=== PATIENT | female | born 1965 | race Asian ===

== ENCOUNTER 2021-06-03 09:48 | Observation (INO) ==
[2021-06-03] MEDS ORDERED: ONDANSETRON INJ 2 MG/ML 2 ML VIAL IV STA (10:21)
[2021-06-03] MEDS ORDERED: MoRPHine SULFATE 2 MG/ML CARP IV STA ×2 (10:22→14:25)
--- NOTE | 2021-06-03 10:28 | Emergency Department Note ---
History of Present Illness General Chief complaint: Wrist Pain Stated complaint: BROKE R WRIST Time Seen by Provider: 06/03/21 10:13 History of Present Illness Maximum Pain Intensity: 9 This 55-year-old female, with known diabetes, hypertension, and elevated cholesterol, presents today for evaluation of her right wrist. Patient states she walked out of the house this morning and tripped on a curb or stone. She fell forward, landing on her right side. She had immediate onset of pain in her right wrist. There was an obvious deformity. She denies any numbness or tingling. She denies striking her head. There was no dizziness, chest pain, shortness of breath, or syncope. She has had no further treatment. No prior history of significant wrist injury. Patient recently moved here from [place] 3 weeks ago. She states her remains in [place]. She is here today with her boss. Home Medications Medication Instructions Recorded Confirmed Type aspirin 81 mg tablet,delayed 81 mg PO HS 06/03/21 06/03/21 History release (Aspirin Low Dose) atorvastatin 20 mg tablet (Lipitor) 20 mg PO HS 06/03/21 06/03/21 History dulaglutide 0.75 mg/0.5 mL 0.75 mg SUBCUT WK 06/03/21 06/03/21 History subcutaneous pen injector (Trulicity) empagliflozin 25 mg tablet 25 mg PO QAM 06/03/21 06/03/21 History (Jardiance) ergocalciferol (vitamin D2) 1,250 50,000 unit PO WK 06/03/21 06/03/21 History mcg (50,000 unit) capsule (Vitamin D2) glimepiride 1 mg tablet (Amaryl) 1 mg PO QDB 06/03/21 06/03/21 History lisinopril 2.5 mg tablet (Zestril) 2.5 mg PO HS 06/03/21 06/03/21 History pioglitazone 30 mg tablet (Actos) 30 mg PO QAM 06/03/21 06/03/21 History Allergies Allergy/AdvReac Type Severity Reaction Status Date / Time No Known Allergies Allergy Unverified 06/03/21 12:55 Past Med/Surg History Medical History (Updated 06/03/21 @ 18:34 by Manny Lopez PA-C) Diabetes Elevated cholesterol Hypertension Surgical History (Updated 06/03/21 @ 18:23 by Manny Lopez PA-C) No pertinent past surgical history Family History (Updated 06/03/21 @ 18:23 by Manny Lopez PA-C) Other Diabetes Social History (Updated 06/03/21 @ 18:24 by Manny Lopez PA-C) Smoking Status: Never smoker Hx Substance Use: No Preferred Language: Beninese marital status: Current Living Situation: Other Current Living Situation Comment: lives with her employer current occupational status: employed current occupation: nail salon Feels Safe at Home: Yes Review of Systems A total of 10 systems reviewed and were otherwise negative Physical Exam Vital Signs Vital Signs - 24 hr 06/03/21 10:03 06/03/21 12:02 06/03/21 14:22 Temperature 36.8 C Temperature Source Temporal Artery Scan Pulse Rate 68 Pulse Rate [Finger] 60 58 L Pulse Rhythm [Finger] Regular Regular Pulse Strength [Finger] Normal Respiratory Rate 16 16 18 Respiratory Effort / Characteristics Non-Labored Spontaneous Non-Labored Spontaneous Respiratory Depth Normal Normal Respiratory Pattern Regular Regular Blood Pressure 123/81 Blood Pressure [Left Arm] 156/94 H 117/71 Blood Pressure Mean 95 Blood Pressure Mean [Left Arm] 114 86 Blood Pressure Position Sitting Blood Pressure Position [Left Arm] Sitting Pulse Oximetry 98 95 98 Oxygen Delivery Method Room Air Room Air Sepsis Recent Fever Within 48 Hours No Sepsis New/Unexplained Change in Mental Status N/A Sepsis Action Taken by Nursing No Action Required General: Well-developed, well-nourished, middle-aged female, in obvious discomfort. Laying on the bed. Alert and oriented. Conversive. Skin: Warm and dry with good turgor. No rashes. Patient does have an obvious deformity of the right wrist. Ecchymosis and edema are present. HEENT: Normocephalic atraumatic. Eyes PERRLA, EOMI. No conjunctiva or scleral injection. Heart: Heart RRR. No MGR. Peripheral pulses are 2+. Lungs: Lungs are clear to auscultation. No crackles rhonchi or wheezing. Good air movement. The patient is able to take a deep breath. Abdomen: Abdomen was inspected, auscultated, and palpated. Bowel sounds present x 4. Soft, nontender to palpation. No hepato-splenomegaly. No masses noted. No rebound. Musculoskeletal: Patient has intact motor function to the hips, knees, and ankles. She has no discomfort with palpation over the lower extremities. She has no pain with palpation over her right clavicle, shoulder, bicep, elbow, or forearm. No pain with palpation over the radial head. She does have discomfort with palpation over the obvious deformity at her right wrist. No pain with palpation over the metacarpals or digits. Motor function of the fingers is intact, including thumb circumduction and opposition. Motion is limited sec ondary to her wrist pain. Supination and pronation of the wrist were not attempted. She has no discomfort with palpation over her cervical spine. Neurologic: Gross sensation is intact across all aspects of the right arm. Radial, median, ulnar nerve functions are intact for both sensory and motor. Course Administered Medications Sodium Chloride (Nss 1000ml) 1,000 mls @ 80 mls/hr IV .[id number] HUGO Stop: 07/03/21 14:29 Last Admin: 06/03/21 16:52 Dose: 80 mls/hr Documented by: [id number] Oxycodone/Acetaminophen (Oxycodone/Acetaminophen 5mg/325mg Tab) 1 - 2 tab PO Q4H PRN PRN Reason: Pain Stop: 06/17/21 14:18 Last Admin: 06/03/21 15:59 Dose: 1 tab Documented by: [id number] Discontinued Medications Morphine Sulfate (Morphine Sulfate 2 Mg/Ml Carp) 2 mg IV NOW STA Stop: 06/03/21 10:23 Last Admin: 06/03/21 10:31 Dose: 2 mg Documented by: [id number] Morphine Sulfate (Morphine Sulfate 2 Mg/Ml Carp) 2 mg IV NOW STA Stop: 06/03/21 14:26 Last Admin: 06/03/21 14:38 Dose: 2 mg Documented by: [id number] Ondansetron HCl (Ondansetron Inj 2 Mg/Ml 2 Ml Vial) 4 mg IV NOW STA Stop: 06/03/21 10:22 Last Admin: 06/03/21 10:31 Dose: 4 mg Documented by: [id number] Medical Decision Making Differential Diagnosis Possibility of hypoglycemia, syncope, mechanical fall, arrhythmia, open fracture dislocation, fracture, and contusion were considered among others. Medical Records Attestation: I reviewed the patient's medical records. Home Medications Current Medication List: was personally reviewed by me Laboratory Data CBC, PRP, and Covid test were obtained. Covid is negative. CBC is relatively unremarkable. No anemia. No signs of infection. Glucose is normal at 91. CHEM panel is otherwise unremarkable. Result diagrams: 06/03/21 14:26 06/03/21 14:28 Lab Results 06/03/21 06/03/21 06/03/21 Range/Units 12:31 12:31 14:26 WBC 4.08 L (4.8-10.8) K/uL RBC 4.58 (4.2-5.4) M/uL Hgb 13.6 (12.0-16.0) g/dL Hct 41.9 (37-47) % MCV 91.5 (80-100) fL MCH 29.7 (25-34) pg MCHC 32.5 (32-36) g/dL RDW Std Deviation 47.4 H (36.4-46.3) fL RDW Coeff of Kamala 14.2 (11.5-14.5) % Plt Count 94 L (130-400) K/uL MPV 11.7 H (7.4-10.4) fL Immature Gran % (Auto) 0.2 % Neut % (Auto) 57.4 % Lymph % (Auto) 35.5 % Tift % (Auto) 4.7 % Eos % (Auto) 2.0 % Baso % (Auto) 0.2 % Neut # (Auto) 2.34 (1.4-6.5) K/uL Lymph # (Auto) 1.45 (1.2-3.4) K/uL Tift # (Auto) 0.19 (0.11-0.59) K/uL Eos # (Auto) 0.08 (0-0.5) K/uL Baso # (Auto) 0.01 (0-0.2) K/uL Immature Gran # (Auto) 0.01 (0.00-0.02) K/uL Platelet Estimate Normal (Normal) RBC Morphology Unremarkable Sodium (136-145) mmol/L Potassium (3.5-5.1) mmol/L Chloride (98-107) mmol/L Carbon Dioxide (21-32) mmol/L Anion Gap (3-11) BUN (7-18) mg/dl Creatinine (0.6-1.2) mg/dl Est Cr Clr Drug Dosing ml/min Est GFR ( Amer) ml/min Est GFR (Non-Af Amer) ml/min BUN/Creatinine Ratio (10-20) Glucose (70-99) mg/dl Calcium (8.5-10.1) mg/dl Total Bilirubin (0.2-1) mg/dl AST (15-37) U/L ALT (12-78) U/L Alkaline Phosphatase (45-117) U/L Total Protein (6.4-8.2) gm/dl Albumin (3.4-5.0) gm/dl Globulin (2.5-4.0) gm/dl Albumin/Globulin Ratio (0.9-2) Specimen Hemolysis COVID-19 Eval Order Covid19 at [facility] SARS-CoV-2 (PCR) NEGATIVE (Negative) 06/03/21 Range/Units 14:28 WBC (4.8-10.8) K/uL RBC (4.2-5.4) M/uL Hgb (12.0-16.0) g/dL Hct (37-47) % MCV (80-100) fL MCH (25-34) pg MCHC (32-36) g/dL RDW Std Deviation (36.4-46.3) fL RDW Coeff of Kamala (11.5-14.5) % Plt Count (130-400) K/uL MPV (7.4-10.4) fL Immature Gran % (Auto) % Neut % (Auto) % Lymph % (Auto) % Tift % (Auto) % Eos % (Auto) % Baso % (Auto) % Neut # (Auto) (1.4-6.5) K/uL Lymph # (Auto) (1.2-3.4) K/uL Tift # (Auto) (0.11-0.59) K/uL Eos # (Auto) (0-0.5) K/uL Baso # (Auto) (0-0.2) K/uL Immature Gran # (Auto) (0.00-0.02) K/uL Platelet Estimate (Normal) RBC Morphology Sodium 142 (136-145) mmol/L Potassium 4.2 (3.5-5.1) mmol/L Chloride 109 H (98-107) mmol/L Carbon Dioxide 30 (21-32) mmol/L Anion Gap 3.0 (3-11) BUN 15 (7-18) mg/dl Creatinine 0.90 (0.6-1.2) mg/dl Est Cr Clr Drug Dosing 68.5 ml/min Est GFR ( Amer) 82.8 ml/min Est GFR (Non-Af Amer) 71.5 ml/min BUN/Creatinine Ratio 16.6 (10-20) Glucose 91 (70-99) mg/dl Calcium 9.0 (8.5-10.1) mg/dl Total Bilirubin 0.5 (0.2-1) mg/dl AST 22 (15-37) U/L ALT 18 (12-78) U/L Alkaline Phosphatase 62 (45-117) U/L Total Protein 7.1 (6.4-8.2) gm/dl Albumin 3.6 (3.4-5.0) gm/dl Globulin 3.5 (2.5-4.0) gm/dl Albumin/Globulin Ratio 1.0 (0.9-2) Specimen Hemolysis COVID-19 Eval Order SARS-CoV-2 (PCR) (Negative) Imaging Data My Impression: Radiographic imaging obtained today of the right wrist was reviewed by me and read by radiology. Patient has a Mena type fracture of the distal radius, with an intra-articular component and significant angulation and displacement. There is also an ulnar styloid fracture. Radiologist's Impression: Wrist X-Ray 06/03/21 10:21 XR wrist RT min 3V routine HISTORY: 55 years-old Female fall this am, wrist deformity acute right-sided wrist pain status post fall COMPARISON: None TECHNIQUE: 4 views of the right wrist FINDINGS: There is an acute comminuted and impacted intra-articular fracture of the distal radius which demonstrates apex dorsal angulation with dorsal displacement and approximately 3 mm. Lateral displacement of a few millimeters. There is an acute fracture of the ulnar styloid with fracture separation of approximately 2 mm. Demineralized appearance of the bones. Moderate soft tissue swelling. No additional acute fracture or dislocation. IMPRESSION: 1. Acute comminuted, impacted, angulated and mildly displaced intra-articular distal radial fracture. 2. Acute ulnar styloid fracture. ACT 112: Negative or not required by law. The above report was generated using voice recognition software. It may contain grammatical, syntax or spelling errors. Electronically signed by: Paul Bates M.D. 06/03/2021 11:37 AM Chest X-Ray 06/03/21 14:22 XR chest 2V PA/lateral HISTORY: 55 years-old Female pre-op preoperative exam. No acute chest complaints COMPARISON: None TECHNIQUE: AP and lateral views of the chest FINDINGS: Cardiac silhouette is mildly enlarged. No pneumothorax, pleural effusion, airs pace consolidation or overt pulmonary edema. Degenerative changes of the shoulders and spine. IMPRESSION: No acute process. ACT 112: Negative or not required by law. The above report was generated using voice recognition software. It may contain grammatical, syntax or spelling errors. Electronically signed by: Paul Bates M.D. 06/03/2021 3:41 PM ECG Data Additional Comments: EKG ordered today is pending. Prescription Drug Monitoring [place] Drug Monitoring Program reviewed and no issues identified Blood Pressure Blood Pressure Findings: Normal blood pressure MDM Narrative Patient was evaluated today in room A12. IV was established. Labs were obtained. She was given Zofran 4 mg IV and morphine 2 mg IV x2 for pain control. Imaging was obtained. This confirmed a Mena type fracture of the distal radius. Patient had no other obvious injuries and had no other complaints. She was placed in a well-padded sugar tong splint by me. Neurovascular status was checked before and after splint placement. Consult was obtained from Dr. Laughlin of orthopedics. He recommended admission and fixation of the fracture and due to its unstable nature. Patient was in agreement. She will be admitted to his service. Please see his dictation for final management. She remained reasonably comfortable and stable while in the ED. Preoperative chest x-ray and EKG were obtained. Impression & Plan Fracture of right distal radius Patient will be taken to the OR tomorrow morning for ORIF by Dr. Laughlin. Discharge Plan Visit Data Chief Complaint: Wrist Pain Stated Complaint: BROKE R WRIST ED Provider: [facility] ED Midlevel Provider: Manny Lopez Discharge Problem: Fracture of right distal radius Forms Stand Alone Forms: [facility] Prescriptions Prescriptions: No Action atorvastatin [Lipitor] 20 mg tablet 20 mg PO HS RF: 0 glimepiride [Amaryl] 1 mg tablet 1 mg PO QDB RF: 0 ergocalciferol (vitamin D2) [Vitamin D2] 1,250 mcg (50,000 unit) capsule 50,000 unit PO WK RF: 0 pioglitazone [Actos] 30 mg tablet 30 mg PO QAM RF: 0 lisinopril [Zestril] 2.5 mg tablet 2.5 mg PO HS RF: 0 Jardiance 25 mg tablet 25 mg PO QAM RF: 0 Trulicity 0.75 mg/0.5 mL pen injector 0.75 mg SUBCUT WK RF: 0 aspirin [Aspirin Low Dose] 81 mg Tablet,Delayed Release (Dr/Ec) 81 mg PO HS RF: 0 Referrals Referrals: PCP,NO [Primary Care Provider] - Discharge Problem: Fracture of right distal radius Qualifiers: Encounter type: initial encounter Fracture type: closed Fracture morphology: [facility]'s Qualified Code(s): S52.541A - Mena's fracture of right radius, initial encounter for closed fracture
--- NOTE | 2021-06-03 11:38 | XRay Report ---
XR wrist RT min 3V routine HISTORY: 55 years-old Female fall this am, wrist deformity acute right-sided wrist pain status post fall COMPARISON: None TECHNIQUE: 4 views of the right wrist FINDINGS: There is an acute comminuted and impacted intra-articular fracture of the distal radius which demonst rates apex dorsal angulation with dorsal displacement and approximately 3 mm. Lateral displacement of a few millimeters. There is an acute fracture of the ulnar styloid with fracture separation of appro ximately 2 mm. Demineralized appearance of the bones. Moderate soft tissue swelling. No additional ac [place] fracture or dislocation. IMPRESSION: 1. Acute comminuted, impacted, angulated and mildly displaced intra-articular distal radial fracture. 2. Acute ulnar styloid fracture. ACT 112: Negative or not required by law. The above report was generated using voice recognition software. It may contain grammatical, syntax o r spelling errors. Electronically signed by: Paul Bates M.D. 06/03/2021 11:37 AM
[2021-06-03] MEDS ORDERED: ONDANSETRON INJ 2 MG/ML 2 ML VIAL IV PRN (14:19)
[2021-06-03] MEDS ORDERED: HYDROmorphone INJ 0.5 MG/0.5 ML SYR IV PRN (14:19)
--- NOTE | 2021-06-03 14:19 | History & Physical Report ---
Date of Service June 03, 2021 Assessment & Plan (1) Fracture of right distal radius: I talked to her about the diagnosis and treatment options at bedside. Given the unstable nature of this fracture pattern, I recommended open reduction internal fixation. I would like to admit her to the hospital tonight and perform the ORIF tomorrow morning. Afterwards she will be placed in a splint and likely discharged home. She understands the risk, benefits, and alternatives to procedures like to proceed. Questions were answered at bedside. Time was spent describing the procedure and postoperative expectations. The decision was made for surgery. She is being admitted to the orthopedic service overnight for definitive fixation tomorrow. She will be n.p.o. past midnight tonight. History of Present Illness Chief Complaint: Right distal radius fracture. Primary Care Provider: THOMAS PCP Eloina is a pleasant 55-year-old female who recently moved to the area 3 weeks ago. She works at a [employer]. Earlier this morning she tripped and fell on her right outstretched hand. She had a deformity of her right wrist. She came to the emergency room and radiographs demonstrated a displaced right distal radius fracture. Given the instability of this type of fracture pattern, she is being admitted to orthopedic service for definitive reduction and fixation tomorrow.. Allergies Allergy/AdvReac Type Severity Reaction Status Date / Time No Known Allergies Allergy Unverified 06/03/21 12:55 Home Medications Medication Instructions Recorded Confirmed Type aspirin 81 mg tablet,delayed 81 mg PO HS 06/03/21 06/03/21 History release (Aspirin Low Dose) atorvastatin 20 mg tablet (Lipitor) 20 mg PO HS 06/03/21 06/03/21 History dulaglutide 0.75 mg/0.5 mL 0.75 mg SUBCUT WK 06/03/21 06/03/21 History subcutaneous pen injector (Trulicity) empagliflozin 25 mg tablet 25 mg PO QAM 06/03/21 06/03/21 History (Jardiance) ergocalciferol (vitamin D2) 1,250 50,000 unit PO WK 06/03/21 06/03/21 History mcg (50,000 unit) capsule (Vitamin D2) glimepiride 1 mg tablet (Amaryl) 1 mg PO QDB 06/03/21 06/03/21 History lisinopril 2.5 mg tablet (Zestril) 2.5 mg PO HS 06/03/21 06/03/21 History pioglitazone 30 mg tablet (Actos) 30 mg PO QAM 06/03/21 06/03/21 History Past Med/Surg History Social History Smoking Status: Never smoker Preferred Language: Senegalese Feels Safe at Home: Yes Review of Systems All systems reviewed & are unremarkable except as noted in HPI & below. Physical Exam On physical examination of the right wrist, she is in a coaptation splint. She has some swelling of her fingers. She does have motion of her fingers. Sensation is intact.. Constitutional WD/WN, vitals as above Eyes PERRL, conjunctivae normal, anicteric sclerae ENMT external ear and nose normal, oropharynx normal Neck trachea midline, no thyromegaly Respiratory normal respiratory effort Cardiovascular RRR, no murmur, no edema Gastrointestinal (Abdomen) normal bowel sounds, soft, nontender, no hepatosplenomegaly Psychiatric A+Ox3, euthymic affect Results & Data Results & Data Laboratory Results . Diagnostic Findings Show a volar displaced right distal radius fracture with a displaced ulnar styloid fracture. There is an intra-articular component.. PG Care Time/CCT Total # of Minutes Spent Total Time Spent with Patient: Total time spent is greater than 50% in coordination of care (as documented) at patient's floor/unit and/or counseling patient: Coding Level of Care Code 95876 Initial Inpt Care Lvl 2 (56 - DECISION FOR SURGERY) Diagnoses Fracture of right distal radius S52.501A
[2021-06-03 15:06] LABS: Albumin Level 3.6 gm/dl (3.4-5.0); BUN Creatinine Ratio 16.6 (10-20); Bilirubin,Total 0.5 mg/dl (0.2-1); Creatinine Clr Calc Pharmacy 68.5 ml/min; Est GFR (African American) 82.8 ml/min; Est GFR (Non-African American) 71.5 ml/min; Globulin 3.5 gm/dl (2.5-4.0); Potassium 4.2 mmol/L (3.5-5.1); Total Protein 7.1 gm/dl (6.4-8.2)
[2021-06-03 15:15] LABS: Hematocrit (blood only) 41.9 % (37-47); Hemoglobin 13.6 g/dL (12.0-16.0); Mean Corpuscular Hemoglobin 29.7 pg (25-34); Mean Corpuscular Hgb Conc 32.5 g/dL (32-36); Mean Corpuscular Volume 91.5 fL (80-100); Mean Platelet Volume 11.7 fL (7.4-10.4); Platelet Count 94 K/uL (130-400); RDW Coefficient of Variation 14.2 % (11.5-14.5); RDW Standard Deviation 47.4 fL (36.4-46.3); Red Blood Count 4.58 M/uL (4.2-5.4); White Blood Count 4.08 K/uL (4.8-10.8)
[2021-06-03 15:16] LABS: Basophils # (auto) 0.01 K/uL (0-0.2); Basophils % (auto) 0.2 %; Eosinophils # (auto) 0.08 K/uL (0-0.5); Immature Granulocytes # (auto) 0.01 K/uL (0.00-0.02); Immature Granulocytes % (auto) 0.2 %; Lymphocytes # (auto) 1.45 K/uL (1.2-3.4); Lymphocytes % (auto) 35.5 %; Monocytes # (auto) 0.19 K/uL (0.11-0.59); Monocytes % (auto) 4.7 %; Neutrophils # (auto) 2.34 K/uL (1.4-6.5); Neutrophils % (auto) 57.4 %; Platelet Estimate Normal (Normal); RBC Morphology Unremarkable
--- NOTE | 2021-06-03 15:42 | XRay Report ---
XR chest 2V PA/lateral HISTORY: 55 years-old Female pre-op preoperative exam. No acute chest complaints COMPARISON: None TECHNIQUE: AP and lateral views of the chest FINDINGS: Cardiac silhouette is mildly enlarged. No pneumothorax, pleural effusion, airspace consolidation or o vert pulmonary edema. Degenerative changes of the shoulders and spine. IMPRESSION: No acute process. ACT 112: Negative or not required by law. The above report was generated using voice recognition software. It may contain grammatical, syntax o r spelling errors. Electronically signed by: Paul Bates M.D. 06/03/2021 3:41 PM
[2021-06-03] MEDS: oxyCODONE/ACETAMINOPHEN 5mg/325mg TAB PO PRN (15:59)
[2021-06-03] MEDS: SODIUM CHLORIDE 0.9% 1000ML 1,000 ML IV SCH (16:52)
[2021-06-03] MEDS ORDERED: ASPIRIN 81 MG ECTAB PO SCH (21:00)
[2021-06-03] MEDS ORDERED: ATORVASTATIN 20 MG TAB PO SCH (21:00)
[2021-06-03] MEDS ORDERED: lisinopril 2.5 MG TAB PO SCH (21:00)
[2021-06-04] MEDS ORDERED: ceFAZolin 1000MG 1,000 MG/7.5 ML SYR IV SCH (06:00)
[2021-06-04] MEDS ORDERED: GLIMEPIRIDE 2 MG TAB PO SCH (07:30)
--- NOTE | 2021-06-04 08:44 | Anesthesiology Consultation ---
Date of Service June 04, 2021 Assessment & Plan (1) Encounter for pre-operative examination: Chart Review Chart Review: Acceptable Risk for Surgery History Surgery Operation Date: 06/04/21 09:00 Proposed Procedures p Open Reduction Internal Fixation Distal Radius(Right) - Canelo Laughlin DO Operation Date: 06/04/21 09:10 Proposed Procedures p Open Reduction Internal Fixation Right distal radius(Right) - Canelo Laughlin DO Height/Weight Height: 5 ft 2 in Weight: 80.2 kg Allergies Allergy/AdvReac Type Severity Reaction Status Date / Time No Known Allergies Allergy Unverified 06/03/21 12:55 Medications Home Medications Medication Instructions Recorded Confirmed Last Taken aspirin 81 mg tablet,delayed 81 mg PO HS 06/03/21 06/03/21 06/02/21 release (Aspirin Low Dose) atorvastatin 20 mg tablet (Lipitor) 20 mg PO HS 06/03/21 06/03/21 06/02/21 dulaglutide 0.75 mg/0.5 mL 0.75 mg SUBCUT WK 06/03/21 06/03/21 05/31/21 subcutaneous pen injector (Trulicity) empagliflozin 25 mg tablet 25 mg PO QAM 06/03/21 06/03/21 06/03/21 (Jardiance) ergocalciferol (vitamin D2) 1,250 50,000 unit PO WK 06/03/21 06/03/21 05/28/21 mcg (50,000 unit) capsule (Vitamin D2) glimepiride 1 mg tablet (Amaryl) 1 mg PO QDB 06/03/21 06/03/21 06/03/21 lisinopril 2.5 mg tablet (Zestril) 2.5 mg PO HS 06/03/21 06/03/21 06/02/21 pioglitazone 30 mg tablet (Actos) 30 mg PO QAM 06/03/21 06/03/21 06/03/21 Active Medications Generic Name Dose Route Start Last Admin Trade Name Freq PRN Reason Stop Dose Admin Aspirin 81 mg 06/03/21 21:00 06/03/21 21:39 Aspirin 81 Mg Ectab PO 07/03/21 20:59 81 mg HS HUGO Administration Atorvastatin Calcium 20 mg 06/03/21 21:00 06/03/21 21:38 Atorvastatin 20 Mg Tab PO 07/03/21 20:59 20 mg HS HUGO Administration Glimepiride 1 mg 06/04/21 07:30 06/04/21 07:50 Glimepiride 2 Mg Tab PO 07/04/21 07:29 Not Given QDB HUGO Sodium Chloride 1,000 mls @ 80 mls/hr 06/03/21 14:30 06/03/21 16:52 Nss 1000ml IV 07/03/21 14:29 80 mls/hr .[id number] HUGO Administration Lisinopril 2.5 mg 06/03/21 21:00 06/03/21 21:38 Lisinopril 2.5 Mg Tab PO 07/03/21 20:59 2.5 mg HS HUGO Administration Miscellaneous 1 ea 06/04/21 08:00 06/04/21 07:44 Jardiance: Order Awaiting Action N/A 07/04/21 07:59 Not Given QS HUGO Oxycodone/Acetaminophen 1 - 2 tab 06/03/21 14:19 06/03/21 15:59 Oxycodone/Acetaminophen 5mg/325mg Tab PO 06/17/21 14:18 1 tab Q4H PRN Administration Pain Pioglitazone HCl 30 mg 06/04/21 09:00 06/04/21 07:50 Pioglitazone Hcl 15 Mg Tab PO 07/04/21 08:59 Not Given QAM HUGO NPO Date Last Intake of Fluids: 06/03/21 Time Last Intake of Fluids: 23:55 Date Last Intake of Solids: 06/03/21 Last Intake of Solids Comment: pt did not have any solid food on this unit Past Medical History Medical History Diabetes Elevated cholesterol Hypertension Past Family History Family History Other Diabetes Past Surgical History Surgical History No pertinent past surgical history Social History Smoking Status: Never smoker Hx Alcohol Use: No Hx Substance Use: No Physical Exam Vital Signs Last Vital Signs Temp 36.6 C 06/04/21 07:12 Pulse 63 06/04/21 07:12 Resp 16 06/04/21 07:12 BP 115/71 06/04/21 07:12 Pulse Ox 97 06/04/21 07:12 Testing Laboratory Results 06/03/21 14:26 06/03/21 14:28 Electrocardiogram Date: 06/03/21 Findings: + poor R wave progression and + SB @ (59) Chest X-Ray Date: 06/03/21 Findings: + NAD
[2021-06-04] MEDS ORDERED: PIOGLITAZONE HCL 15 MG TAB PO SCH (09:00)
[2021-06-04] MEDS: SODIUM CHLORIDE 0.9% 1000ML 1,000 ML IV SCH (09:03)
[2021-06-04] MEDS ORDERED: ATROPINE SULFATE 0.1 MG/ML 10ML SYR IV PRN (09:10)
[2021-06-04] MEDS ORDERED: ONDANSETRON INJ 2 MG/ML 2 ML VIAL IV PRN (09:10)
[2021-06-04] MEDS ORDERED: KETOROLAC 30 MG/ML VIAL IV PRN (09:10)
[2021-06-04] MEDS ORDERED: DEXAMETHASONE SOD INJ 4 MG/ML VIAL ONE (09:32)
[2021-06-04] MEDS ORDERED: LIDOCAINE 2% 2 ML VIAL/AMP(20MG/ML) INFIL ONE (09:32)
[2021-06-04] MEDS ORDERED: PROPOFOL IV EMULSION 10 MG/ML 20 ML VIAL IV ONE (09:32)
[2021-06-04] MEDS ORDERED: ONDANSETRON INJ 2 MG/ML 2 ML VIAL ONE (09:32)
[2021-06-04] MEDS ORDERED: MIDAZOLAM HCL 1 MG/ML 2ML VIAL ONE (09:33)
[2021-06-04] MEDS ORDERED: fentaNYL citrate 100 MCG/2 ML VIAL ONE ×2 (09:33→11:51)
--- NOTE | 2021-06-04 09:34 | History & Physical Bridge Note ---
Date of Service June 04, 2021 History & Physical Bridge Note I have examined the patient, reviewed the History & Physical and in the interval since the performance of the History & Physical I have noted the following changes of clinical significance: no changes noted
[2021-06-04] MEDS ORDERED: EPINEPHrine INJ 1 MG/ML AMP ONE (11:06)
[2021-06-04] MEDS ORDERED: BUPIVACAINE 0.25% 30 ML VIAL ONE (11:06)
--- NOTE | 2021-06-04 11:16 | Fluoroscopy Report ---
INTRAOPERATIVE RADIOGRAPHS CLINICAL HISTORY: Open reduction and internal fixation of the right wrist. Fluoroscopy time: 2 minutes 18 seconds. FINDINGS: 2 spot fluoroscopic views of the right wrist are correlated with radiographs dated 1. There is a mildly displaced avulsion fracture the ulnar styloid. There has been buttress plate fix ation of a comminuted and intra-articular fracture the distal radius with pentecostalism of near-anatomi c alignment. Numerous cortical lag screws transfix the buttress plate. The orthopedic hardware appear s intact. Overlying soft tissue edema is noted. IMPRESSION: Intraoperative images from open reduction and internal fixation of the distal right radiu s as above. Electronically signed by: Armond Naranjo M.D. 06/04/2021 11:14 AM
[2021-06-04] MEDS ORDERED: DEXTROSE 50% 50 ML SYRINGE IV ONE ×2 (11:43→11:44)
--- NOTE | 2021-06-04 11:49 | Operative Report ---
PG Post Operative Report Pre & Post Diagnosis Operation Date: 06/04/21 09:00 Pre-Op Diagnosis: 3 part extra-articular right distal radius fracture Post-Op Diagnosis: 3 part extra-articular right distal radius fracture Operation Date: 06/04/21 09:10 <No data on this case meets the specified criteria> I identified the patient and participated in the time-out.: Yes Procedure Operation Date: 06/04/21 09:00 Actual Procedures p Open Reduction Internal Fixation Distal Radius(Right) - Canelo Laughlin DO Operation Date: 06/04/21 09:10 <No data on this case meets the specified criteria> Surgeon Canelo Laughlin DO Bookbinder Chief Herbert Ramírez PAC Estimated Blood Loss 5 Findings Consistent with Post-Op Diagnosis Specimens None Complications none Disposition Disposition: Recovery Room Indications Eloina is a pleasant 55-year-old female who tripped and fell on her right outstretched hand yesterday. She was seen in the emergency room. She had a volarly displaced distal radius fracture. The fracture pattern was unstable. I do not think a closed reduction would hold. After discussions, she elected to be admitted overnight and undergo open reduction internal fixation the following morning. Description of Procedure On June 04, 2021 Eloian was brought down from her hospital room to the preoperative holding area. The operative extremity was identified and signed. She was given a preoperative antibiotic. She is taken back the operating room and laid on the table in supine position. She was put under general anesthesia. The right wrist was prepped and draped in sterile fashion. A timeout was done. The patient and the operative extremity was properly identified. A volar approach was used. Dissection was taken down directly over the flexor c arpi radialis. The tendon was retracted radially. Care was taken not to disrupt any of the neurovascular structures. The supinator was elevated off the distal radius. The fracture was exposed. The fracture was then reduced. A [employer] 3-hole narrow distal radial locking plate was then placed. Appropriate placement of the plate was checked on orthogonal fluoroscopic images. A single proximal locking screw was placed. The fracture was held to the plate and a single distal locking screw was placed. Fluoroscopic images showed anatomic alignment of the fracture and the hardware. The remainder the screws were placed. All screw lengths were checked under fluoroscopy. The wound was then irrigated. Tourniquet was deflated and hemostasis was obtained. The supinator was repaired with 2-0 Vicryl suture. Skin was closed with 3-0 Vicryl and a 4-0 nylon suture in a mattress fashion. She was then placed in a volar splint. She was then extubated and transferred to a [facility]. She was taken to the post anesthesia care unit in stable condition. She tolerated the procedure well. Chandan Ramírez PA-C, was present for the entire procedure. He was critical for patient positioning, prepping, draping, retraction exposure, wound closure and application of sterile dressing. I attest to the content of the Intraoperative Record and any orders documented therein. Any exceptions are noted below.
[2021-06-04] MEDS: fentaNYL citrate 100 MCG/2 ML VIAL IV PRN ×3 (11:53→12:03)
--- NOTE | 2021-06-04 11:54 | Electrocardiogram Report ---
Test Reason : Blood Pressure : / mmHG Vent. Rate : 059 BPM Atrial Rate : 059 BPM P-R Int : 164 ms QRS Dur : 084 ms QT Int : 420 ms P-R-T Axes : 030 027 024 degrees QTc Int : 415 ms Sinus bradycardia Poor R wave progression, consider anterior CO vs. lead placement vs. LVH Abnormal ECG No previous ECGs available Confirmed by Brandon Riojas ([id number]) on 06/04/2021 11:54:11 AM Referred By: REFERRED SELF Confirmed By:Brandon Riojas
--- NOTE | 2021-06-04 12:06 | Anesthesiology Progress Note ---
Date of Service June 04, 2021 Anesthesia Post Procedure Vital Signs Vital Signs: Temp Pulse Pulse Resp BP Pulse Ox 06/04/21 12:05 76 14 130/72 95 06/04/21 11:55 69 16 129/73 100 06/04/21 11:45 71 12 123/70 100 06/04/21 11:36 36.4 C L 68 12 136/74 99 06/04/21 07:12 36.6 C 63 16 115/71 97 06/03/21 23:28 36.9 C 68 16 97/60 L 95 06/03/21 19:45 36.8 C 64 18 122/74 99 06/03/21 14:22 58 L 18 117/71 98 Pain Intensity Right Wrist: Pain Intensity: 4 Transfer of Care Handoff Completed per policy Notes Mental Status: alert / awake / arousable Patient Amnestic to Procedure: Yes Nausea / Vomiting: adequately controlled Pain: adequately controlled Airway Patency, RR, SpO2: stable & adequate BP & HR: stable & adequate Hydration State: stable & adequate Anesthetic Complications: no major complications apparent
[2021-06-04] MEDS ORDERED: NALOXONE HCL 0.4 MG/1 ML VIAL/CARP IV PRN (12:34)
[2021-06-04] MEDS ORDERED: KETOROLAC 30 MG/ML VIAL IV SCH (12:34)
[2021-06-04] MEDS ORDERED: SODIUM CHLORIDE 0.9% 1000ML 1,000 ML IV SCH (12:34)
[2021-06-04] MEDS: oxyCODONE/ACETAMINOPHEN 5mg/325mg TAB PO PRN (13:22)
--- NOTE | 2021-06-04 15:16 | Orthopedic Progress Note ---
Date of Service June 04, 2021 Assessment & Plan (1) Fracture of right distal radius: Overall she is doing well. She is having too much pain in the right hand. She can be discharged home today. She will follow-up with orthopedics in 2 weeks. José Duvall was seen and examined at bedside. Overall she is doing well. Is not in too much pain in the hand. She is having some numbness in her fingers she has no complaints.. Review of Systems All systems reviewed & are unremarkable except as noted in HPI & below. Physical Exam On physical examination of the right hand, there is swelling of her fingers. She does have a little bit of motion. She has numbness throughout, mostly secondary to the local anesthetic.. Results & Data Results & Data Laboratory Results . Diagnostic Findings . PG Care Time/CCT Total # of Minutes Spent Total Time Spent with Patient: Total time spent is greater than 50% in coordination of care (as documented) at patient's floor/unit and/or counseling patient: Coding Level of Care Code 46089 Post Operative Follow-Up Diagnoses Fracture of right distal radius S52.541A Encounter type: initial encounter Fracture morphology: Mena's Fracture type: closed (1) Fracture of right distal radius Encounter type: initial encounter Fracture morphology: Mena's Fracture type: closed Qualified Code(s): S52.541A - Mena's fracture of right radius, initial encounter for closed fracture
--- NOTE | 2021-06-04 15:18 | Discharge Summary ---
Date of Service June 04, 2021 Admission HPI (Per Admitting) Eloina is a pleasant 55-year-old female who recently moved to the area 3 weeks ago. She works at a nail salon. Earlier this morning she tripped and fell on her right outstretched hand. She had a deformity of her right wrist. She came to the emergency room and radiographs demonstrated a displaced right distal radius fracture. Given the instability of this type of fracture pattern, she is being admitted to orthopedic service for definitive reduction and fixation tomorrow.. Admission Exam (Per Admitting) On physical examination of the right wrist, she is in a coaptation splint. She has some swelling of her fingers. She does have motion of her fingers. Sensation is intact.. Principal Diagnosis Same as "Discharge Diagnosis" noted below under Discharge Instructions. Discharge Exam On physical examination of the right hand, there is swelling of her fingers. She does have a little bit of motion. She has numbness throughout, mostly secondary to the local anesthetic.. Discharge Data Consultations 06/03/21 12:04 ED Decision to Admit Stat Procedures Performed Operation Date: 06/04/21 09:00 Actual Procedures p Open Reduction Internal Fixation Distal Radius(Right) - Canelo Laughlin, Operation Date: 06/04/21 09:10 <No data on this case meets the specified criteria> Ordered Studies 06/04/21 FL wrist RT 2V Routine Hospital Course (1) Fracture of right distal radius: On June 03, 2021 Eloina arrived at [facility] emergency room with a displaced right distal radius fracture. She was seen by orthopedics in the emergency room and the decision was made to admit her overnight and do a fixation of the fracture the following morning. On June 04, 2021 she was brought down from her hospital room to the OR and underwent an open reduction internal fixation of her right wrist without complication. She had a general anesthetic. Postoperatively she was placed in a splint and transferred back to her orthopedic floor. Once she recovered from the anesthesia she was discharged to home. She will follow-up with orthopedics in 2 weeks. Encounter type: initial encounter Fracture morphology: Mena's Fracture type: closed Qualified Code(s): S52.541A - Mena's fracture of right r adius, initial encounter for closed fracture PG Care Time/CCT Total # of Minutes Spent Total Time Spent with Patient: Total time spent is greater than 50% in coordination of care (as documented) at patient's floor/unit and/or counseling patient: Discharge Plan Discharge Items Patient Disposition: Home - Home Health Services Reason For Visit: WRIST FRACTURE Discharge Diagnosis: Fixation of the right wrist Activity: As commented below Non-emergency contact: Surgeon Call non-emergency contact if: your wound has increased redness and your wound h as increased drainage Follow-up/Referrals: PCP,NO [Primary Care Provider] - Diet: Regular Addtl Attending Provider Instructions: ORTHOPEDIC INSTRUCTIONS Activity Recommendations: Very limited use of the right hand. No gripping or lifting. May use fingers. Medications: Take the Percocet as needed for pain. Dressing Care: Keep the splint clean and dry. Do not change the splint. Showering: Do not get the splint wet. Things To Watch For: 1. Fever above 102 degrees Fahrenheit. 2. Unusual chest pain or shortness of breath. 3. Call [facility] at with any of the above problems Follow-Up Visit: Follow-up with Dr. Laughlin's PA (Canelo Reis) on Saturday or Saturday of this week. We will change her splint and get you started with physical therapy. If you have any additional questions or concerns, Dr Laughlin is usually in the office at the same time and will be available Please call on Saturday to schedule an appointment for a time that works for you Pending Studies at Discharge: No Stand-Alone Forms: My [facility], Smoking Cessation Medications and DC Order Prescriptions: New oxycodone-acetaminophen 5-325 mg tablet 1 tab PO Q6H PRN (Reason: pain) Qty: 30 RF: 0 Continued atorvastatin [Lipitor] 20 mg tablet 20 mg PO HS RF: 0 glimepiride [Amaryl] 1 mg tablet 1 mg PO QDB RF: 0 ergocalciferol (vitamin D2) [Vitamin D2] 1,250 mcg (50,000 unit) capsule 50,000 unit PO WK RF: 0 pioglitazone [Actos] 30 mg tablet 30 mg PO QAM RF: 0 lisinopril [Zestril] 2.5 mg tablet 2.5 mg PO HS RF: 0 Jardiance 25 mg tablet 25 mg PO QAM RF: 0 Trulicity 0.75 mg/0.5 mL pen injector 0.75 mg SUBCUT WK RF: 0 aspirin [Aspirin Low Dose] 81 mg Tablet,Delayed Release (Dr/Ec) 81 mg PO HS RF: 0 Discharge Orders: Discharge Order (Routine); Ordered 06/04/21 Ordered By: Canelo Laughlin Admission Data Admit Date/Time: 06/03/21 14:19 Attending Provider: Canelo Laughlin Admit Provider: Canelo Laughlin Primary Care Provider: PCP,NO Other Providers: Canelo Laughlin Other Interventions: Discharge Summary Assessment (RN) Last Done: 06/04/21 12:16
== END 2021-06-04 17:21 | disposition home health service (06) ==
LOC: ED 09:48 → 3N 09:48
DX: Z79.899 Other long term (current) drug therapy; W01.0XXA Fall on same level from slipping, tripping and stumbling without subsequent striking against object, initial encounter; S52.541A Smith's fracture of right radius, initial encounter for closed fracture; Z79.82 Long term (current) use of aspirin